=== PATIENT | female | born 1960 | race American Indian/Alaskan Native ===

== ENCOUNTER 2019-01-15 01:51 | Emergency (ER) | payer SELFPAY ==
[2019-01-15 02:29] VITALS: BP 132/61
[2019-01-15 02:36] LABS: Basophils # (Auto) 0.2 K/mm3 (0.0-0.1); Basophils % (Auto) 1.2 % (0.0-1.8); Eosinophils # (Auto) 0.2 K/mm3 (0.0-0.4); Eosinophils % (Auto) 1.1 % (0.0-4.3); Hematocrit 37.7 % (30.3-42.9); Hemoglobin 12.3 gm/dl (10.1-14.3); Lymphocytes # (Auto) 2.5 K/mm3 (1.2-5.4); Lymphocytes % (Auto) 18.1 % (13.4-35.0); Mean Corpuscular HGB Conc 33 % (30-34); Mean Corpuscular Volume 86 fl (79-97); Monocytes % (Auto) 7.5 % (0.0-7.3); Platelet Count 275 K/mm3 (140-440); Red Blood Count 4.36 M/mm3 (3.65-5.03)
[2019-01-15 02:52] LABS: BUN/Creatinine Ratio 23; Blood Urea Nitrogen 18 mg/dL (7-17); Calcium 9.2 mg/dL (8.4-10.2); Hemolysis Index 9
--- NOTE | 2019-01-15 05:26 | XRay Report ---
CHEST 1 VIEW 0227 INDICATION / CLINICAL INFORMATION: Midsternal pain, history of cardiac disease. COMPARISON: None available. FINDINGS: SUPPORT DEVICES: None HEART / MEDIASTINUM: Borderline cardiomegaly LUNGS / PLEURA: No significant pulmonary or pleural abnormality. No pneumothorax. ADDITIONAL FINDINGS: No significant additional findings. IMPRESSION: No significant acute abnormality Signer Name: Luan Ferguson MD Signed: 01/15/2019 5:21 AM Workstation Name: [id number]
== END 2019-01-15 04:04 | disposition left against medical advice (07) ==
LOC: ED 01:51
DX: R07.89 Other chest pain (principal); Z53.21 Procedure and treatment not carried out due to patient leaving prior to being seen by health care provider
CPT/HCPCS: 36415; 71045; 80048; 84484; 85025